=== PATIENT | female | born 1985 | race African-American/Black ===

== ENCOUNTER 2020-12-13 20:33 | Emergency (ER) | payer BC ==
[~2020-12-13] VITALS: Ht 160 cm; Wt 54.4 kg
[~2020-12-13 20:33] MED LIST: IBUPROFEN 800800 M1 PO; PROMS25 WY RECTAL; TYLENOL P.M. E1 EAC3; ULTRAM 50MG TAB50 MG PO; ZOFRAN ODT4 MG PO
[2020-12-13 21:42] LABS: URINE BILIRUBIN NEGATIVE (Negative); URINE BLOOD NEGATIVE (Negative); URINE CLARITY CLEAR; URINE COLOR YELLOW; URINE GLUCOSE-RANDOM* NEGATIVE (Negative); URINE KETONES 3+ (Negative); URINE LEUKOCYTES-REFLEX NEGATIVE (Negative); URINE NITRITE-REFLEX NEGATIVE (Negative); URINE PROTEIN (DIPSTICK) NEGATIVE (Negative); URINE UROBILINOGEN 0.2 E.U./dl (0.2-1.0)
[2020-12-13 21:46] LABS: URINE REDUCING SUBSTANCE NEGATIVE
[2020-12-13 22:07] LABS: ABSOLUTE NEUTROPHILS 8.2 thou/uL (1.4-8.2); BASOPHILS 0.5 % (0.0-2.0); EOSINOPHILS 0.9 % (0.0-3.0); HEMATOCRIT 38.9 % (37.0-47.0); HEMOGLOBIN 12.7 gm/dL (12.0-15.0); LYMPHOCYTES 21.8 % (24.0-44.0); MCHC 32.7 g/dL (28.0-37.0); MCV 91.6 fL (80.0-100.0); PLATELET COUNT 223 thou/uL (150-400); POLYS 68.8 % (36.0-66.0); RBC 4.25 mil/uL (4.20-5.00); RDW 14.3 % (10.5-14.5); WBC 11.9 thou/uL (4.0-11.0)
[2020-12-13 22:09] LABS: CALCIUM 8.9 mg/dL (8.5-10.1); CREATININE 0.7 mg/dL (0.6-1.0); POTASSIUM 3.4 mmol/L (3.5-5.1)
[2020-12-13 22:15] LABS: ALBUMIN 3.7 g/dL (3.4-5.0); TOTAL BILIRUBIN 0.9 mg/dL (0.2-1.0); TOTAL PROTEIN 6.9 g/dL (6.4-8.2)
[2020-12-14 00:05] VITALS: BP 120/71
== END 2020-12-14 00:05 | disposition home or self-care (01) ==
LOC: ER 20:33
PROVIDERS: Physician Assistant
DX: O21.8 Other vomiting complicating pregnancy (principal); Z3A.01 Less than 8 weeks gestation of pregnancy

== ENCOUNTER 2021-01-07 21:31 | Emergency (ER) | payer BC ==
[~2021-01-07] VITALS: Ht 160 cm; Wt 55.3 kg
[2021-01-07 22:38] LABS: ABSOLUTE NEUTROPHILS 9.9 thou/uL (1.4-8.2); BASOPHILS 0.7 % (0.0-2.0); HEMATOCRIT 34.3 % (37.0-47.0); HEMOGLOBIN 11.7 gm/dL (12.0-15.0); LYMPHOCYTES 17.5 % (24.0-44.0); MCV 91.2 fL (80.0-100.0); MONOCYTES 7.7 % (1.0-8.0); PLATELET COUNT 252 thou/uL (150-400); POLYS 73.1 % (36.0-66.0); RBC 3.76 mil/uL (4.20-5.00); RDW 14.2 % (10.5-14.5); WBC 13.5 thou/uL (4.0-11.0)
[2021-01-07 22:40] LABS: CALCIUM 8.8 mg/dL (8.5-10.1); CREATININE 0.6 mg/dL (0.6-1.0); POTASSIUM 3.5 mmol/L (3.5-5.1)
[2021-01-07 22:49] LABS: ALBUMIN 3.2 g/dL (3.4-5.0); TOTAL BILIRUBIN 0.3 mg/dL (0.2-1.0); TOTAL PROTEIN 6.4 g/dL (6.4-8.2)
[2021-01-08 00:55] VITALS: BP 115/68
== END 2021-01-08 00:55 | disposition home or self-care (01) ==
LOC: ER 21:31
PROVIDERS: Emergency Medicine
DX: O20.0 Threatened abortion (principal); Z3A.09 9 weeks gestation of pregnancy